=== PATIENT | male | born 1990 | race Caucasian/White ===

== ENCOUNTER 2018-03-23 14:33 | Emergency (ER) | payer OTHER, MEDICAID ==
[~2018-03-23] VITALS: Ht 175.3 cm; Wt 95.3 kg
[2018-03-23 14:37] VITALS: BP_SYST 149
[2018-03-23 15:09] VITALS: BP_SYST 144
== END 2018-03-23 15:09 ==
LOC: SED 14:33
DX: F12.90 Cannabis use, unspecified, uncomplicated (principal); F41.9 Anxiety disorder, unspecified; R03.0 Elevated blood-pressure reading, without diagnosis of hypertension
CPT/HCPCS: 99283